=== PATIENT | female | born 2000 | race Caucasian/White ===

== ENCOUNTER 2024-04-21 09:19 | Emergency (ER) | payer BC, SELFPAY ==
[2024-04-21 09:28] VITALS: BP 116/75
[2024-04-21 10:00] VITALS: BP 95/65; BP 97/71
--- NOTE | 2024-04-21 10:32 | ED.GENMED ---
History of Present Illness
General
Chief Complaint: Abdominal Pain
Source: patient
Exam Limitations: none
Time Seen by Provider: 04/21/24 10:06
Nursing documentation reviewed up to this point in time: agreed with
History of Present Illness
History of Present Illness:
pt is a 23 y/o F
here with L pelvic pain to back x 2 weeks worsening
pt has had ongoing issues with L sided abd pain and back pain and painless gross hematuria
she had eval at [facility] ED months ago (6?) which was neg other than blood in urine
she was sento urology first, where she had testing and cystoscopy which was neg
still intermittently had hematuria
went to nephrology because also for other sypmtoms, raash, joint pain, fatigue, etc
and had complement testing, rheum w/u (lupus, sjogrens etc) and soem genetic testing; she is telling me she was told she could have amelogenesis imperfeta but she was able to show me her phone with the results and the test itself was neg
pt has scheduled [employer] appt today at 230 pm but was getting blood work and despite going to [place] she yolanda she was told to come here for outpatient lab
on the way her pain got worse so she decided to check in
she intiially said this is new pain but then said she has had this pain but not as severe
she had pelvic US from 2022 which was neg
she was diangosed with fibromyalgia at age 13.
says she has had intermittent fevers with temp of 101, 100, for months daily
urine culture from last week was 10k mixed marlee; not treated
her UA showed 6-10 wbc and no blood
Past History
Past History
ED Past Medical History: Other (fibromyalgia)
ED Past Surgical History: None
Social History
Tobacco: Non-smoker
Alcohol: None
Drug: None
Personal: Single
Review of Systems
Review of Systems
Allergies reviewed?: Yes
All Other Systems: Not applicable
Phy Exam
Physical Exam
Physical Exam:
GENERAL: Alert , in no apparent distress
EYE: pupils equal and reactive
NECK: Supple
ENT: o/p clr, mmm.
CARDIAC: Regular rate and rhythm .
LUNGS: Clear breath sounds bilaterally, no acute respiratory distress, no wheezes/rales/rhonchi
ABDOMEN: Soft, mild L sided lower abdomial tenderness, mild L pelvic tenderness, no r/g, no cvat, normal bowel sounds
no cva tenderness
NEUROLOGICAL: Alert and oriented, no focal neuro deficits
SKIN: Warm and dry, skin intact.
MUSCULOSKELETAL: No edema, well perfused. neg rianna's sign
PSYCH: Normal and appropriate interaction.
Course
Orders/Labs/Results
Orders:
Orders
04/21/24 10:29
0.9% Sodium Chloride 1000 ml [Nss] 1,000 ml IV BOLUS
Morphine Sulfate 2 mg IV NOW STA
Ondansetron Injectable [Zofran] 4 mg IV NOW STA
04/21/24 10:30
Test Result ONCE
04/21/24 10:31
Pelvis & Transvaginal US [US Pelvis W Transvag Combined] Urgent
Comment:
Reason For Exam: L pelvic pain, eval for torsion/cyst
04/21/24 10:36
Complete Blood Count/With Diff Urgent
Comprehensive Metabolic Panel Urgent
HCG, Serum Qualitative Screen Urgent
Lipase Urgent
04/21/24 12:27
Urinalysis Reflex To Culture Urgent
Date Specimen was Collected: 04/21/24
Time Specimen was Collected: 11:28
Urine Microscopic Reflex Cult Urgent
Urine Culture Urgent
ERINN Source: U
Specimen Description:
Date Specimen was Collected: 04/21/24
Time Specimen was Collected: 11:28
04/21/24 13:04
Acetaminophen [Tylenol] 650 mg PO NOW STA
Morphine Sulfate 2 mg IV NOW STA
04/21/24 13:08
Oxycodone/Acetaminophen [Percocet 5/325] 1 tablet PO NOW STA
Abnormal Lab Results
04/21/24 04/21/24
10:36 12:27
MCHC 32.9 L g/dL
(33.0-37.0)
Ur Occult Blood Reflex 2+ A
(Negative)
Leukocyte Esterase Rfl 1+ A
(Negative)
04/21/24 10:36
04/21/24 10:36
Vital Signs
Initial and Last Documented VS:
Initial Vital Signs
Temp Pulse Resp BP Pulse Ox
36.8 C 73 18 116/75 99
04/21/24 09:28 04/21/24 09:28 04/21/24 09:28 04/21/24 09:28 04/21/24 09:28
Last Documented Vital Signs
Temp Pulse Resp BP Pulse Ox
36.8 C 60 16 110/74 99
04/21/24 09:28 04/21/24 10:00 04/21/24 10:00 04/21/24 11:00 04/21/24 11:30
MDM/Problems Addressed
Differential Diagnosis Includes:
ovarian cyst, ovarian torsion, kidney stone, urinary infection
MDM/Problems Addressed:
23 y/o F
llq/L pelvic pain
initially sounded more acute in the past 2 weeks but really after spending a decent amount of time with patient and revieweing her patient portal showing her extensive work up it seems this has been something ongoing for years
she has had soem worsening of pain in the past 2 weeks
being w/u by neprhology for possible autoimmune or genetic cause for her hematurai
is scheduled to see this doctor today
was supposed to have labs, with completement, gerardo, sjogrens, anti ds dna etc at [facility] and was on her way here to have that done harpreet she decided to check in for the pain
pt originally checked at another hospital a few months ago with this same pain and had the blood in her urine then, no kidney stones
she was then sent to urology and then finally nephrology
it actually seems that tehere is no diagnosis yet
she has no hematuria currently
no vaginal discharge
just finished menses
no fever/chills, vomiting
she is having episodes of more intense pain in the L pelvis
feels it radiate to back
started with labs and pelvic US
which other than some LE, blood, (only 0-2 rbc) and many wbc, many sqa, labs otherwise unremarkable
pelvic Usis unremarkable
then trupti zhaoo proceed with stone search but pt did not want to miss her [employer] appt
she khari huertas that we are not done with the w/u
but i suspect with that UA that she doesn't have obstructive uropathy
will cover with abx just in case
return precautions
pt declined pelvic exam.
*Critical Care Note
Total Time (30-74mins, 75-104mins- exclusive of procedures): Not Applicable
ED Attending Note
-
Portions of this chart may have been created with voice recognition software.� Occasional wrong word or��sound alike� substitutions may have occurred due to the inherent limitations of voice recognition software.
Discharge Plan
Departure
Patient Disposition: Home (Routine Discharge)
Date of Disposition: 04/21/24
Time of Disposition: 13:09
Patient with high blood pressure during this ER visit?: No
Condition: Fair
Discharge Problem:
Abdominal pain
Instructions: Abdominal Pain
Prescriptions:
New
cefdinir 300 mg capsule
300 mg PO BID Qty: 10 0RF
No Action
cyclobenzaprine 10 MG tablet
10 mg PO QPM
desogestrel-ethinyl estradiol [Apri] 1 EACH tablet
1 ea PO QPM
ibuprofen 800 MG tablet
800 mg PO PRN PRN (Reason: pain)
escitalopram oxalate 10 MG tablet
10 mg PO HS
melatonin 10 MG tablet
20 mg PO PRN PRN (Reason: insomnia)
Referrals:
Chaka Hay, [Family Provider] - Follow up in 2-3 days
Activity Restrictions/Additional Instructions:
YOU DID NOT WISH TO STAY FOR A CAT SCAN TO EVALUATE FOR A KIDNEY STONE
YOUR ULTRASOUND WAS NEGATIVE FOR ANY OVARIAN PROBLEMS
YOUR URINE HAD SOME SIGNS OF POSSIBLE INFECTION SO WE ARE TREATING YOU FOR THAT: WITH CEFDINIR TWICE A DAY FOR 5 DAYS
DRINK FLUIDS
STAY HDYRATED
SEE YOUR DIRECTOR OF RELIGIOUS ACTIVITIES TODAY PLANNED
RETURN FOR: FEVER, SEVERE PAIN, VOMITING, OR ANY CONCERNS.
Interventions
Interventions:
*Risk Screen - Suicide Last Done: 04/21/24 10:03
*General Assessment Last Done: 04/21/24 10:03
*Neglect/Abuse Screening Last Done: 04/21/24 10:03
*ED- Fall Risk Assessment Last Done: 04/21/24 10:01
*ED COVID-19 Vaccine History Last Done: 04/21/24 10:01
*Nursing Disposition Last Done: 04/21/24 13:27
[place]-Xhdsbi-Spexbkrwyw Assessment Last Done: 04/21/24 10:02
Discharge Date and Time
Discharge Date/Time: 04/21/24 13:27
Print Language: [email or web address]
[2024-04-21] MEDS: NSS 1000 IV (10:45)
[2024-04-21] MEDS: ZOFRAN 4 MG IV (10:46)
[2024-04-21] MEDS: MORPHINE SULFATE 2 MG IV (10:46)
[2024-04-21 10:55] LABS: % Basophils 0.6 % (0-2); % Eosinophils 2.4 % (0-6); % Immature Granulocytes 0.4 % (0-0.5); % Lymphocytes 29.8 % (20.5-51.1); % Neutrophils 59.8 % (42.2-75.2); Absolute Basophils 0.1 10^3/uL (0-0.2); Absolute Eosinophils 0.2 10^3/uL (0-0.7); Absolute Lymphocytes 2.5 10^3/uL (1.2-3.4); Absolute Monocytes 0.6 10^3/uL (0.1-0.6); Absolute Neutrophils 4.9 10^3/uL (1.4-6.5); Hematocrit 38.9 % (37.0-47.0); Hemoglobin 12.8 g/dL (12.0-16.0); Mean Corp Hgb Conc. 32.9 g/dL (33.0-37.0); Mean Corpuscular Hgb 27.8 pg (27.0-31.0); Mean Corpuscular Volume 84.6 fL (81.0-99.0); Mean Platelet Volume 9.8 fL (7.4-10.4); Nucleated Red Blood Cells % 0 %; Platelet Count 253 10^3/uL (130-400); White Blood Cell Count 8.3 10^3/uL (4.8-10.8)
[2024-04-21 11:00] VITALS: BP 110/74
[2024-04-21 11:08] LABS: HCG, Serum Qualitative Screen Negative
[2024-04-21 11:10] LABS: ALT (SGPT) 15 U/L (0-35); AST (SGOT) 20 U/L (14-36); Albumin 4.6 g/dl (3.5-5.0); Alkaline Phosphatase 61 U/L (38-126); Blood Urea Nitrogen 12 mg/dl (7-17); Calcium 9.6 mg/dl (8.4-10.2); Carbon Dioxide 26 mmol/L (22-30); Chloride 103 mmol/L (98-107); Glucose 82 mg/dl (70-99); Sodium 138 mmol/L (135-145); Total Bilirubin 0.7 mg/dl (0.2-1.3); Total Protein 6.8 g/dl (6.3-8.2); eGFR > 60.00
[2024-04-21 11:46] LABS: Lipase 106 U/L (23-300)
[2024-04-21 12:47] LABS: Urine Albumin Negative (Neg - Trace); Urine Bilirubin Negative (Negative); Urine Character Clear (Clear); Urine Color Yellow; Urine Glucose Negative (Negative); Urine Ketone Negative (Negative); Urine Leukocyte 1+ (Negative); Urine Nitrite Negative (Negative); Urine Occult Blood 2+ (Negative); Urine Specific Gravity 1.015 (<1.030); Urine Urobilinogen Negative (Neg - 1+)
[2024-04-21] MEDS: PERCOCET 5/325 1 TABLET PO (13:11)
[2024-04-21 13:56] LABS: Urine Mucus Few
[2024-04-21 13:57] LABS: Urine Squamous Cell >30 /LPF (Few)
[2024-04-21 13:58] LABS: Urine Amorphous Seen
[2024-04-21 13:59] LABS: Urine Red Blood Cell 0-2 /HPF (0-2)
== END 2024-04-21 13:27 | disposition home or self-care (01) ==
LOC: EMR 09:19
PROVIDERS: Physician Assistant; EMERGENCY PHYSICIAN Student in an Organized Health Care Education/Training Program; FAMILY PHYSICIAN Family Medicine
DX: R10.32 Left lower quadrant pain (principal); R10.2 Pelvic and perineal pain; M79.7 Fibromyalgia
CPT/HCPCS: 96374; 96375; 96361; 99284; 76830; 76856; 80053; 81003; 81015; 83690; 84703; 85025; 87086

== ENCOUNTER → 2024-05-02 10:19 | Outpatient (REF) | payer BC, SELFPAY ==
[2024-05-02 11:51] LABS: C-Reactive Protein < 5.00 mg/L (0.0-10.00)
[2024-05-02 12:17] LABS: Erythrocyte Sed Rate 2 mm/hour (0-20)
[2024-05-02 15:36] LABS: Rheumatoid Agglutinin Less Than 10 IU (<10 IU)
[2024-05-03 23:18] LABS: ds-DNA Ab, IgG Reflex To Titer 3 IU (0-24)
[2024-05-04 01:30] LABS: SSA 52 (Ro)(ENA) Ab, IgG 7 AU/mL (0-40); SSA 60 (Ro)(ENA) Ab, IgG 0 AU/mL (0-40); SSB (La)(ENA) Ab, IgG 0 AU/mL (0-40); Scleroderma Antibody (Scl-70) 1 AU/mL (0-40)
[2024-05-04 01:34] LABS: Glomerular Base Membrane Ab 0 AU/mL (0-19); Myeloperoxidase Antibody 0 AU/mL (0-19); Serine Protease-3, IgG 1 AU/mL (0-19)
[2024-05-04 02:52] LABS: ANA, IgG Reflex to HEp-2 None Detected (None Detected)
[2024-05-05 00:55] LABS: Complement C3 111 mg/dl (88-165)
== END ==
LOC: REG 10:19
PROVIDERS: ATTENDING PHYSICIAN Internal Medicine Nephrology; FAMILY PHYSICIAN Family Medicine
DX: R31.9 Hematuria, unspecified (principal)
CPT/HCPCS: 36415; 82595; 83516; 85652; 86038; 86140; 86160; 86225; 86235; 86430